=== PATIENT | female | born 1935 | race Caucasian/White ===

== ENCOUNTER → 2021-07-01 | Day surgery (SDC) | payer OTHER ==
[~2021-07-01] VITALS: Ht 154.9 cm; Wt 88.5 kg
[~2021-07-01] MED LIST: ALENDRONATE SOD70 MG PO; ASA81BEC PO; ATORVASTATIN CA10 MG PO; CARAFATE 1 GM TA1 G1 PO; CITALOPRAM HBR40 MG PO; GLIMEPIRIDE1 MG PO; KETOCONAZOLE15 GM TOP; LEVOTHYROXINE75 MCG PO; LISINOPRIL10 MG PO; METFORMIN HCL1000 MG PO; NEURONTIN 300M300 M2 PO; OMEPRAZOLE 20 M20 M1 PO; PIOGLITAZONE15 MG PO; VICTOZA 3-0.6 MG/0.1 SUBQ
[2021-07-01 11:28] LABS: HEMATOCRIT 34.5 % (37.0-47.0); HEMOGLOBIN 11.2 gm/dL (12.0-15.0); MCH 28.2 pg (26.0-34.0); MCHC 32.5 g/dL (28.0-37.0); MCV 86.6 fL (80.0-100.0); RBC 3.99 mil/uL (4.20-5.00); RDW 14.7 % (10.5-14.5); WBC 4.9 thou/uL (4.0-11.0)
[2021-07-01 11:31] VITALS: BP 152/57
--- NOTE | 2021-07-01 14:55 | EKG ---
[address] [address] ELECTROCARDIOGRAM REPORT Name: ATUL URIAS Room #: REG [facility]#: [id number] Admission: 07/01/21 Attend Phys: Ramin Proctor MD Discharge: Date of : 39 Report #: [id number] [facility] Test Date: 2021-07-01 Test Time: 11:39:02 Pat Name: ATUL URIAS Department: Room: Gender: F Ciso: HORTENCIA : 1935 Requested By: Ramin Proctor Order Number: [id number] : Arun Ruiz Measurements Intervals [place] Rate: 82 P: 8 OK: 182 QRS: 10 QRSD: 102 T: -2 QT: 424 QTc: 496 Interpretive Statements Sinus rhythm Borderline T abnormalities, inferior leads No previous ECG available for comparison Electronically Signed On 07-01-2021 14:54:49 INSURANCE EXAMINING CLERK by Arun Ruiz [email or web address] <ELECTRONICALLY SIGNED> By: Arun Ruiz MD, [facility] 07/01/21 1454 1139 1139 Arun Ruiz MD, FACC /EPI
--- NOTE | 2021-07-05 06:11 | O ---
[facility] [address] [place] [address] OPERATIVE REPORT Name: ATUL URIAS Room #: REG [facility].#: [id number] Admission: 07/01/21 Attend Phys: Ramin Proctor MD Discharge: Date of : 39 Report #: [id number] THIS REPORT FOR: cc: FAM - Family physician unknown FAM - Family physician unknown Ramin Proctor MD ~ cc: Martha Mccray DO DATE OF SERVICE: 07/01/2021 PREOPERATIVE DIAGNOSIS: Tumor of right lower lid. POSTOPERATIVE DIAGNOSIS: Tumor of right lower lid, basal cell carcinoma. PROCEDURES: Excision of lesion of right lower lid with frozen section, control of margins and myocutaneous flap repair of defect. SURGEON: Ramin Proctor MD INCLUSION MANAGER: None. ANESTHESIA: MAC. COMPLICATIONS: None. INDICATIONS FOR SURGERY: This pleasant 85-year-old woman has an ulcerative lesion in her central right lower lid that appears to be a basal cell carcinoma. She presents today for excision of this lesion with subsequent reconstruction of the ensuing defect. Informed consent was obtained to include, but not limited to the potential risk for loss of vision, bleeding, infection, failure to improve the problem, and the potential need for further surgery or treatment. DESCRIPTION OF PROCEDURE: The patient was taken to the operating room where 2% Xylocaine with epinephrine mixed with equal parts 0.75% Marcaine with Wydase was administered transcutaneously and transconjunctivally to the right lower lid, the right cheek, the right medial canthus and the right lateral canthus. The patient was subsequently prepped and draped in the usual sterile fashion. A fine tip skin marking pen was then utilized to outline the lesion including approximately 2 mm of normal tissue around its margins. The incisions were then made perpendicularly across the eyelid margin with a Dorian scissor and drawn to a point in the premalar space. Hemostasis was achieved with diligent pinpoint monopolar cautery. The specimen was then oriented on a drawing for the waiting pathologist. She snap froze the tissue and found that the lesion was indeed a basal cell carcinoma and that the margins appeared to be clear. A myocutaneous flap was then developed superotemporally to correct this defect. [address] [address] OPERATIVE REPORT Name: ATUL URIAS Room #: REG [facility]..#: [id number] Admission: 07/01/21 Attend Phys: Ramin Proctor MD Discharge: Date of : 39 Report #: [id number] Hemostasis was then re-achieved. The flap was then advanced and secured with interrupted buried 5-0 Vicryl sutures through the relaxing incision. The tarsal plate was then reapproximated with interrupted 5-0 Vicryl sutures. The eyelid margin was reapproximated with interrupted 7-0 Vicryl sutures. The subcutaneous structures more inferiorly were then closed with interrupted buried Vicryl sutures deep and then a final closure of 6-0 plain. The wounds were then cleaned and dressed with erythromycin ophthalmic ointment. The patient subsequently transported to the recovery area having tolerated the procedures well with no anesthetic or operative complications being noted. <ELECTRONICALLY SIGNED> By: Ramin Proctor MD 07/05/21 0611 1304 1324 Ramin Proctor MD /nt
--- NOTE | 2021-07-06 11:07 | PATH ---
[facility] [address] [place] [address] PATHOLOGY RPT PROCEDURE Name: ATUL URIAS Room #: REG [facility] M.R.#: [id number] Admission: 07/01/21 Date of : 39 Discharge: Report #: [id number] Path Case #: [id number] [facility] Accession Number: [id number] . 01 Material submitted: . eyelid - LESION RIGHT LOWER EYELID- FS. Modifiers: right, lower . 01 Clinical history: . BASAL CELL CARCINOMA OF SKIN . 02 Frozen section diagnosis: . FROZEN SECTION DIAGNOSIS (Aide Bo MD) . Right lower lid lesion, excision: - Basal cell carcinoma. - All margins are negative. . . The report was conveyed to Dr. Proctor by Dr. Bo at 13:50 p.m. on 07/01/2021 at [facility]. A written report is placed in the patient's chart. . . FROZEN SECTION GROSS DESCRIPTION: The specimen is labeled with the patient's name and lesion right lower eyelid. Received fresh from the operating room is a triangular skin fragment which measures 0.9 x 0.9 x 0.5 cm. The superior aspect has eyelashes and is part of the lower eyelid. The specimen is oriented per surgeon as medial to inferior to lateral. The medial margin is inked black, the inferior tip is inked reg, and the lateral margin is inked blue, and the specimen is serially sectioned and submitted entirely for frozen section diagnosis in FSA1 and then subsequently in block A1 in formalin. (ANK:dyan; 07/01/2021) . . Frozen section performed at [facility], [address] [place], [place] [address] [address]. . JANAEK/QMS . 01 Diagnosis: Skin, right lower lid lesion, excisional biopsy: - Basal cell carcinoma, completely excised. (SHA:artur; 07/05/2021) MBR 07/05/2021 [address] [address] PATHOLOGY RPT PROCEDURE Name: ATUL URIAS Room #: REG [facility] Bryanna.#: [id number] Admission: 07/01/21 Date of : 39 Discharge: Report #: [id number] Path Case #: [id number] . 01 Electronically signed: . Lonnie Arzola MD, Pathologist NPI- [id number] . 01 Gross description: . PLEASE SEE GROSS DESCRIPTION UNDER FROZEN SECTION HEADING. /QMS 07/02/2021 0019 Local . 01 Pathologist provided ICD-10: C44.1122 . 01 CPT . 524307, 176170 Specimen Comment: A courtesy copy of this report has been sent to [phone] Specimen Comment: Report sent to Specimen Comment: A duplicate report has been generated due to demographic updates. Performed at: [facility] [address] [place] [address], [place] [id number] MD Lonnie Arzola MD Phone: [phone] Performed at: [address] [id number] MD Aide Bo MD Phone: [phone]
== END | disposition home or self-care (01) ==
LOC: OR 08:58
PROVIDERS: ATTEND Ophthalmology
DX: C44.1122 Basal cell carcinoma of skin of right lower eyelid, including canthus (principal); I10 Essential (primary) hypertension; E78.5 Hyperlipidemia, unspecified; F32.9 Major depressive disorder, single episode, unspecified; E11.9 Type 2 diabetes mellitus without complications; K21.9 Gastro-esophageal reflux disease without esophagitis; E03.9 Hypothyroidism, unspecified; Z98.890 Other specified postprocedural states; Z79.899 Other long term (current) drug therapy; Z20.822 Contact with and (suspected) exposure to COVID-19; Z90.49 Acquired absence of other specified parts of digestive tract; Z79.4 Long term (current) use of insulin
CPT/HCPCS: 50010; 50101; 50386; 50398; 51636; 56528; 56531; 62110; 62850; 70005